=== PATIENT | male | born 1970 | race Caucasian/White ===

== ENCOUNTER 2018-10-03 23:48 | Emergency (ER) | payer OTHER ==
[~2018-10-03] VITALS: Ht 190.5 cm; Wt 104.5 kg
[~2018-10-03 23:48] MED LIST: APIDRA1 ML IJ; LANTUS100 MG/ML SC; NAPROSYN500 MG PO; ZESTRIL/PRI10 MG/TAB PO
[2018-10-04] MEDS ORDERED: KEFLEX500 M1 PO (00:25)
[2018-10-04 00:40] VITALS: BP 135/84
== END 2018-10-04 00:40 | disposition home or self-care (01) | DRG 605 ==
LOC: ED 23:48
DX: S51.812A Laceration without foreign body of left forearm, initial encounter (principal); E11.9 Type 2 diabetes mellitus without complications; Y35.401A Legal intervention involving unspecified sharp objects, law enforcement official injured, initial encounter; Y93.89 Activity, other specified; Y92.149 Unspecified place in prison as the place of occurrence of the external cause; Y99.0 Civilian activity done for income or pay; Z95.2 Presence of prosthetic heart valve; Z79.4 Long term (current) use of insulin